=== PATIENT | female | born 2000 | race Caucasian/White ===

== ENCOUNTER 2025-06-06 13:44 | Emergency (ER) | payer MEDICAID, OTHER ==
[~2025-06-06] VITALS: Ht 165.1 cm; Wt 71.7 kg
[2025-06-06 14:40] LABS: APPEARANCE,URINE CLOUDY (CLEAR)
[2025-06-06 14:41] LABS: BLOOD, URINE 3+ Ery/uL (NEGATIVE); UGLUCOSE NEGATIVE (NEGATIVE)
[2025-06-06 14:42] LABS: LEUKOCYTE ESTERASE ,URINE 3+ (NEGATIVE); NITRITE, URINE NEGATIVE (NEGATIVE); PREGNANCY TEST URINE QUAL NEGATIVE (NEGATIVE)
[2025-06-06 15:10] LABS: ADD URINE CULTURE YES; SQUAMOUS EPITHELIAL CELL,UR 0-2 /HPF (None Seen)
[2025-06-06] MEDS ORDERED: SULF1TAB48 PO (15:18)
[2025-06-06] MEDS ORDERED: CEPH-570 PO (15:21)
[2025-06-06 15:32] VITALS: BP 121/68; TEMP 99.1; O2SAT 98
== END 2025-06-06 15:33 | disposition home or self-care (01) ==
LOC: ER 13:44
DX: N39.0 Urinary tract infection, site not specified (principal); R30.0 Dysuria; R31.9 Hematuria, unspecified
CPT/HCPCS: 81001; 84703-TC; 87086-TC